=== PATIENT | male | born 1970 | race Caucasian/White ===

== ENCOUNTER 2017-09-08 16:38 | Emergency (ER) | payer OTHER ==
[~2017-09-08] VITALS: Ht 175.3 cm; Wt 85.0 kg
[2017-09-08 16:40] VITALS: Ht 175.3 cm; Wt 85.0 kg
[2017-09-08 16:45] VITALS: O2SAT 97
[2017-09-08] MEDS ORDERED: HYDROmorphone INJ 1 MG/ML SYR ONE (16:47)
[2017-09-08] MEDS ORDERED: SODIUM CHLORIDE 0.9% 1000ML 1,000 ML IV STA ×2 (16:49)
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
[2017-09-08] MEDS ORDERED: DIPHTHERIA/TETANUS/PERTUSSIS 0.5 ML SYR/VIAL IM. ONE (17:00)
[2017-09-08] MEDS ORDERED: OPTIRAY 320 IV PRN (17:00)
[2017-09-08] MEDS ORDERED: HYDROmorphone INJ 1 MG/ML SYR IV ONE (17:00)
[2017-09-08 17:06] LABS: ISTAT HEMOGLOBIN 15.3 g/dl (14.0-18.0); ISTAT IONIZED CALCIUM 1.12 mmol/l (1.12-1.32)
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
[2017-09-08 17:21] LABS: BUN/CREATININE RATIO 14.7 (10-20); CALCIUM 8.6 mg/dl (8.5-10.1); CREATININE 1.13 mg/dl (0.60-1.40); POTASSIUM 3.7 mmol/L (3.5-5.1)
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
[2017-09-08] MEDS ORDERED: HYDROmorphone INJ 1 MG/ML SYR IV STA (17:36)
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
[2017-09-08] MEDS ORDERED: XYLOCAINE 1%/SOD BICARB 20 ML VIAL INFIL ONE (18:17)
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
[2017-09-08 18:30] VITALS: TEMP 37.1
[2017-09-08] MEDS ORDERED: HYDROmorphone INJ 1 MG/ML SYR IV PRN (18:45)
[2017-09-08 18:47] LABS: BASO % 0.2 %; BASO ABS # 0.04 K/uL (0-0.2); COMPLETE YES; EOS % 0.4 %; HEMATOCRIT 43.5 % (42-52); IG% 0.3 %; LYMPH % 21.4 %; LYMPH ABS # 3.44 K/uL (1.2-3.4); MEAN CELL VOLUME 88.2 fL (80-100); MEAN CORPUSCULAR HEMOGLOBIN 30.8 pg (25-34); MEAN CORPUSCULAR HGB CONC 34.9 g/dl (32-36); MEAN PLATELET VOLUME 10.2 fL (7.4-10.4); MONO % 6.7 %; PLATELET COUNT 193 K/uL (130-400); RED BLOOD COUNT 4.93 M/uL (4.7-6.1); WHITE BLOOD COUNT 16.04 K/uL (4.8-10.8)
[2017-09-08 19:01] VITALS: BP 148/94
[2017-09-08 19:15] VITALS: PULSE 105; O2SAT 97
== END 2017-09-08 19:38 | disposition short-term general hospital (02) ==
LOC: EDBD 16:38 → C.EDB 16:41
DX: S92.215A Nondisplaced fracture of cuboid bone of left foot, initial encounter for closed fracture (principal); S82.302A Unspecified fracture of lower end of left tibia, initial encounter for closed fracture; S82.492A Other fracture of shaft of left fibula, initial encounter for closed fracture; S92.325A Nondisplaced fracture of second metatarsal bone, left foot, initial encounter for closed fracture; S81.811A Laceration without foreign body, right lower leg, initial encounter; S51.012A Laceration without foreign body of left elbow, initial encounter; V64.5XXA Driver of heavy transport vehicle injured in collision with heavy transport vehicle or bus in traffic accident, initial encounter; Y92.410 Unspecified street and highway as the place of occurrence of the external cause; F17.210 Nicotine dependence, cigarettes, uncomplicated